=== PATIENT | male | born 2000 | race Two or more races ===

== ENCOUNTER 2022-03-03 18:05 | Emergency (ER) | payer OTHER ==
[~2022-03-03] VITALS: Ht 172.7 cm; Wt 104.3 kg
--- NOTE | 2022-03-03 18:33 | NUR ---
Patient discharged to home in stable condition. Written and verbal after care instructions given. Patient verbalizes understanding of instructions. Stressed follow up or return to ER for worsening s/s.PT WALKS IN STEADY GAIT, SHELLY ACKERMAN HEADACHE/DIZZINESS. PT ACCOMPANIED BY BROTHER
[2022-03-03 18:53] VITALS: BP 119/71
== END 2022-03-03 19:04 | disposition home or self-care (01) ==
LOC: ER 18:07
DX: G40.909 Epilepsy, unspecified, not intractable, without status epilepticus (principal)
CPT/HCPCS: A4663